=== PATIENT | female | born 1985 | race Two or more races ===

== ENCOUNTER 2021-06-01 06:00 | Day surgery (SDC) | payer OTHER ==
[~2021-06-01 06:00] MED LIST: D3 + K2 DOTS 11 EACH PO; FOLIC ACID0.8 M1 PO; LEVSIN0.125 MG; LIPITOR20 MG PO; METFORMIN HCL500 M3 PO; MONTELUKAST SOD10 MG PO; PORTIA; SINGULAIR10 MG; SPIRIVA RESPIMAT4 G1 IH; SULFASALAZINE500 M1 PO; SYMBICORT 16010.2 GM IH; TREXALL5 MG PO
== END 2021-06-01 12:10 | disposition home or self-care (01) ==
LOC: CIR.AMB 06:00
PROVIDERS: ATTEND Orthopaedic Surgery Hand Surgery
DX: M77.02 Medial epicondylitis, left elbow (principal); G56.22 Lesion of ulnar nerve, left upper limb; Z20.822 Contact with and (suspected) exposure to COVID-19

== ENCOUNTER 2022-07-25 19:27 | Emergency (ER) | payer OTHER ==
[~2022-07-25] VITALS: Ht 170.2 cm; Wt 119.7 kg
[2022-07-25] MEDS ORDERED: TAMS0.4C PO (22:27)
[2022-07-25] MEDS ORDERED: ZOFRAN8 MG PO (22:27)
[2022-07-25] MEDS ORDERED: CIPRO500 MG PO (22:27)
[2022-07-25] MEDS ORDERED: KETO10TA2 PO (22:27)
== END 2022-07-26 00:17 | disposition home or self-care (01) ==
LOC: ER 19:27
DX: R10.31 Right lower quadrant pain (principal); N20.9 Urinary calculus, unspecified; Z91.013 Allergy to seafood; Z20.822 Contact with and (suspected) exposure to COVID-19